=== PATIENT | male | born 1950 | race Caucasian/White ===

== ENCOUNTER 2017-02-12 18:23 | Emergency (ER) | payer MEDICAID ==
[~2017-02-12] VITALS: Ht 172.7 cm; Wt 75.0 kg
[~2017-02-12 18:23] MED LIST: FIORICET PO
[2017-02-12 18:47] VITALS: Ht 172.7 cm; Wt 75.0 kg
[2017-02-12] MEDS ORDERED: PETR5OIN3 TOP (19:14)
[2017-02-12] MEDS ORDERED: CETI10CA PO (19:14)
--- NOTE | 2017-02-12 19:24 | ERD ---
ER Documentation Chief Complaint Date/Time DATE: 02/12/17 TIME: 19:21 Chief Complaint nosebleed today, not at this time. Denies blood thinner HPI 66-year-old male presents in emergency department for complaints of a nosebleed episode today. Patient was outside, was very hot, started to have nose bleeding afterwards. Patient did not have any nasal trauma. Patient denies any nasal pain. Patient denies any difficulty breathing. Patient's bleeding from the nose stopped. Patient does not take any medications for blood thinning. Patient does not have any other symptoms. Patient denies any other bleeding symptoms. ROS All systems reviewed and are negative except as per history of present illness. Medications Home Meds Active Scripts Petrolatum,White* (Vaseline*) 5 Gm Oint.pack, 1 APPLIC TOP BID, #1 PACKET Prov:JAVID FREDERICK NP 02/12/17 Cetirizine Hcl* (Zyrtec*) 10 Mg Capsule, 10 MG PO DAILY, #30 TAB.CHEW Prov:JAVID FREDERICK NP 02/12/17 Acetamin/Butalbital/Caffeine* (Fioricet*) 1 Tab Tab, 1 TAB PO Q4H Y for PAIN LEVEL 1-5, #30 TAB Prov:ALEXIS ZAMAN PA-C 05/12/16 Allergies Allergies: Coded Allergies: No Known Allergy (Unverified , 05/12/16) PMhx/Soc History of Surgery: No Hx Neurological Disorder: No Hx Respiratory Disorders: No Hx Cardiac Disorders: Yes (htn) Hx Psychiatric Problems: No Hx Miscellaneous Medical Probl: No Hx Alcohol Use: No Hx Substance Use: No Hx Tobacco Use: No FmHx Family History: No coronary disease, No diabetes, No other Physical Exam Vitals Vital Signs Date Time Temp Pulse Resp B/P Pulse Ox O2 Delivery O2 Flow Rate FiO2 02/12/17 18:47 98.3 71 18 136/79 98 Physical Exam GENERAL: The patient is well developed and appropriate for usual state of health, in no apparent distress. HEENT: Atraumatic. Ears: Normal tympanic membrane, no erythema or bulging. No ear canal swelling. No ear discharge. Nose: normal nasal turbinates, no erythema or swelling. Normal nasal discharge. Noted dried blood in both naris. No active bleeding at this time. Throat: oropharynx clear. No tonsillar swelling or tonsillar exudates. No lymphadenopathy. CHEST: Clear to auscultation bilaterally. There are no rales, wheezes or rhonchi. HEART: Regular rate and rhythm. No murmurs, clicks, rubs or gallops. No S3 or S4. ABDOMEN: Soft, nontender and nondistended. Good bowel sounds. No rebound or guarding. No gross peritonitis. No gross organomegaly or masses. No Haddad sign or McBurney point tenderness. BACK: No midline or flank tenderness. EXTREMITIES: Equal pulses bilaterally. There is no peripheral clubbing, cyanosis or edema. No focal swelling or erythema. Full range of motion. Grossly neurovascularly intact. NEURO: Alert and oriented. Cranial nerves 2-12 intact. Motor strength in all 4 extremities with 5/5 strength. Sensation grossly intact. Normal speech and gait. SKIN: There is no apparent rash or petechia. The skin is warm and dry. HEMATOLOGIC AND LYMPHATIC: There is no evidence of excessive bruising or lymphedema. No gross cervical, axillary, or inguinal lymphadenopathy. Procedures/MDM Medical decision making: Patient's symptoms of malaise with nonspecific of this time, most likely from the hot weather causing vasodilation on the nasal capillaries. No trauma in the nasal area. no nasal obstruction. No active bleeding at this time. No other bleeding symptoms noted at this time. Patient was given for Zyrtec, Vaseline, is advised to apply Vaseline in both nares to prevent dryness of the nasal turbinates. Patient is advised to return to emergency department for nonstop nasal bleeding, other bleeding symptoms, or any other worsening symptoms. Otherwise, patient is advised to follow with primary care doctor in 2-3 days for reevaluation of symptoms Departure Diagnosis: Primary Impression: Epistaxis Condition: Stable Patient Instructions: Epistaxis (Adult) JAVID FREDERICK NP Feb 12, 2017 19:24
== END 2017-02-12 19:30 | disposition home or self-care (01) ==
LOC: E/R 18:23
DX: R04.0 Epistaxis (principal); I10 Essential (primary) hypertension
CPT/HCPCS: 99283

== ENCOUNTER 2017-03-25 12:48 | Emergency (ER) | payer MEDICAID ==
[~2017-03-25] VITALS: Ht 172.7 cm; Wt 74.5 kg
[~2017-03-25 12:48] MED LIST changes: +CETI10CA PO; +PETR5OIN3 TOP
[2017-03-25 12:51] VITALS: Ht 172.7 cm; Wt 74.5 kg
[2017-03-25] MEDS ORDERED: SODIUM CHLORIDE 0.9% 1L BAG IV* STA (13:36)
[2017-03-25] MEDS ORDERED: ACETAMINOPHEN 500 MG TAB PO STA (13:36)
[2017-03-25 14:24] LABS: ADD UMIC YES; UR ASCORBIC ACID NEGATIVE (NEGATIVE); UR BILIRUBIN (Dip) NEGATIVE (NEGATIVE); UR BLOOD (Dip) NEGATIVE (NEGATIVE); UR CLARITY CLEAR (CLEAR); UR COLOR YELLOW (YELLOW); UR GLUCOSE (Dip) NEGATIVE (NEGATIVE); UR KETONES (Dip) 1+ mg/dL (NEGATIVE); UR LEUKOCYTE ESTERASE (Dip) NEGATIVE Leu/ul (NEGATIVE); UR NITRITE (Dip) NEGATIVE (NEGATIVE); UR RBC 1 /HPF (0-5); UR TOTAL PROTEIN (Dip) 1+ mg/dl (NEGATIVE); UR UROBILINOGEN (Dip) 1+ mg/dL (NEGATIVE)
[2017-03-25 14:33] LABS: BASOPHILS % 0.2 % (0.0-2.0); HEMATOCRIT 39.5 % (42.0-52.0); HEMOGLOBIN 13.8 g/dl (14.0-18.0); LYMPHOCYTES % 7.6 % (15.0-51.0); MEAN CORPUSCULAR HEMOGLOBIN 31.9 pg (29.0-33.0); MEAN CORPUSCULAR HGB CONC 34.9 g/dl (32.0-37.0); MEAN CORPUSCULAR VOLUME 91.2 fl (82.0-101.0); MEAN PLATELET VOLUME 11.7 fl (7.4-10.4); MONOCYTE # 0.9 10^3/ul (0.3-0.9); MONOCYTES % 7.3 % (0.0-11.0); NEUTROPHIL # 10.6 10^3/ul (1.6-7.5); NEUTROPHILS % 84.5 % (39.0-77.0); PLATELET COUNT 137 10^3/UL (140-415); POSITIVE DIFF @See below; RED BLOOD COUNT 4.33 10^6/ul (4.70-6.10); RED CELL DISTRIBUTION WIDTH 13.2 % (11.5-14.5); WHITE BLOOD COUNT 12.5 10^3/ul (4.8-10.8)
--- NOTE | 2017-03-25 14:33 | RADRPT ---
PROCEDURE: CT Brain without contrast. CLINICAL INDICATION: Headache.. TECHNIQUE: A CT of the brain was performed on a multi-slice CT scanner utilizing axial sections fr om the skull base through the vertex without contrast. Coronal and sagittal reconstructed images wer e provided. One or more of the following does reduction techniques were used: Automated exposure c ontrol; adjustment of the mA and/or kV according to patient size; use of the aorta of reconstruction technique. Images were reviewed on a high-resolution PACS workstation. Exam DLP equals 720.23 mGy- cm. The CTDI equals 42.69 mGy COMPARISON: None available FINDINGS: Mild diffuse cerebral and cerebellar atrophy is present. There is no evidence of intracranial hemor rhage, mass effect or midline shift. No abnormal intra-axial or extra-axial fluid collections are s een. There are mild deep white matter patchy hypodensities which are nonspecific, but typically see n in small vessel chronic ischemic disease. The density of the brain is otherwise normal and the g ray/white matter differentiation is well preserved. The osseous structures and visualized paranasal sinuses are unremarkable. IMPRESSION: 1. No CT evidence of acute intracranial pathology. 2. Mild diffuse atrophy and deep white matter microangiopathic ischemic changes. RPTAT: KK .Anant Ricketts MD, Date Time Electronically viewed and signed by .Anant Ricketts MD, MD on 03/25/2017 14:33 .B/
[2017-03-25 14:49] LABS: INR 1.12; PROTIME 14.4 Sec (12.2-14.2); PT RATIO 1.1
[2017-03-25 14:53] LABS: ALBUMIN 4.5 g/dl (3.3-4.9); ALBUMIN/GLOBULIN RATIO 1.66; CALCIUM 9.4 mg/dl (8.4-10.2); CREATININE 1.84 mg/dl (0.61-1.24); POTASSIUM 4.3 mmol/L (3.5-5.1); TOTAL PROTEIN 7.2 g/dl (6.1-8.1)
--- NOTE | 2017-03-25 14:53 | RADRPT ---
PROCEDURE: XR Chest. CLINICAL INDICATION: Sepsis TECHNIQUE: Single frontal chest x-ray. COMPARISON: None. FINDINGS: The lungs are clear of acute infiltrates, edema, effusions, or masses. There is minimal bibasilar at electasis.. The cardiomediastinal silhouette is unremarkable. The osseous structures are intact. IMPRESSION: No acute cardiopulmonary disease. RPTAT: GG .Gavin Orozco MD, MD Date Time Electronically viewed and signed by .Gavin Oorzco MD, MD on 03/25/2017 14:52 .L/
[2017-03-25 15:03] LABS: TROPONIN-I 0.012 ng/ml (0.00-0.12)
[2017-03-25] MEDS ORDERED: TYL500 PO (16:19)
[2017-03-25] MEDS ORDERED: D-ME473S18 PO (16:20)
[2017-03-25] MEDS ORDERED: ONDA-43 PO (16:20)
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
[2017-03-25 16:47] VITALS: BP 129/87; PULSE 99; RESP 20; TEMP 99.2
[2017-03-26] MEDS ORDERED: BENA10TA48 PO (21:54)
[2017-03-26] MEDS ORDERED: HYDR-3011 PO (21:54)
[2017-03-26] MEDS ORDERED: TAMS0.4C2 PO (21:56)
== END 2017-03-25 16:50 | disposition home or self-care (01) ==
LOC: FTE 12:48
DX: R50.9 Fever, unspecified (principal); R11.2 Nausea with vomiting, unspecified; I10 Essential (primary) hypertension; R07.9 Chest pain, unspecified
CPT/HCPCS: 36415; 70450; 71010; 80053; 81001; 83605; 84484; 85025; 85610; 85730; 87040; 87086; 93005; J7030; Z7502; Z7610

== ENCOUNTER 2017-03-26 16:42 | Inpatient (IN) | payer MEDICAID ==
[~2017-03-26] VITALS: Ht 172.7 cm; Wt 75.0 kg
[~2017-03-26 16:42] MED LIST changes: +D-ME473S18 PO; +ONDA-43 PO; +TYL500 PO
[2017-03-26] MEDS ORDERED: ACETAMINOPHEN 325 MG TAB PO STA (19:38)
[2017-03-26] MEDS ORDERED: SODIUM CHLORIDE 0.9% 1L BAG IV* STA (19:38)
[2017-03-26] MEDS ORDERED: CEFEPIME 2GM/50 ML (PMX) 50 ML IVPB STA (19:38)
[2017-03-26] MEDS ORDERED: VANCOMYCIN 1 GM (PMX) 250 ML IVPB ONE (20:00)
[2017-03-26 20:25] LABS: BASOPHILS % 0.1 % (0.0-2.0); HEMATOCRIT 37.4 % (42.0-52.0); HEMOGLOBIN 13.4 g/dl (14.0-18.0); LYMPHOCYTES # 0.9 10^3/ul (0.8-2.9); LYMPHOCYTES % 5.6 % (15.0-51.0); MEAN CORPUSCULAR HEMOGLOBIN 31.8 pg (29.0-33.0); MEAN CORPUSCULAR HGB CONC 35.8 g/dl (32.0-37.0); MEAN CORPUSCULAR VOLUME 88.8 fl (82.0-101.0); MEAN PLATELET VOLUME 12.1 fl (7.4-10.4); MONOCYTE # 1.4 10^3/ul (0.3-0.9); MONOCYTES % 8.9 % (0.0-11.0); NEUTROPHIL # 13.5 10^3/ul (1.6-7.5); NEUTROPHILS % 84.8 % (39.0-77.0); PLATELET COUNT 124 10^3/UL (140-415); RED BLOOD COUNT 4.21 10^6/ul (4.70-6.10); RED CELL DISTRIBUTION WIDTH 13.1 % (11.5-14.5); WHITE BLOOD COUNT 15.9 10^3/ul (4.8-10.8)
[2017-03-26 20:30] LABS: ADD UMIC YES; UR ASCORBIC ACID NEGATIVE (NEGATIVE); UR BILIRUBIN (Dip) NEGATIVE (NEGATIVE); UR BLOOD (Dip) 2+ mg/dL (NEGATIVE); UR CLARITY CLEAR (CLEAR); UR COLOR YELLOW (YELLOW); UR GLUCOSE (Dip) NEGATIVE (NEGATIVE); UR KETONES (Dip) 1+ mg/dL (NEGATIVE); UR LEUKOCYTE ESTERASE (Dip) NEGATIVE Leu/ul (NEGATIVE); UR NITRITE (Dip) NEGATIVE (NEGATIVE); UR RBC 1 /HPF (0-5); UR SPECIFIC GRAVITY (Dip) 1.024 (1.003-1.030); UR TOTAL PROTEIN (Dip) 2+ mg/dl (NEGATIVE); UR UROBILINOGEN (Dip) 1+ mg/dL (NEGATIVE)
[2017-03-26 20:39] LABS: INR 1.12; PROTIME 14.4 Sec (12.2-14.2); PT RATIO 1.1
--- NOTE | 2017-03-26 20:39 | RADRPT ---
PROCEDURE: CT Head without. CLINICAL INDICATION: Altered mental status. TECHNIQUE: The study was performed utilizing a multi-slice, multidetector CT scanner. Direct spira l 1 mm axial sections were obtained through the head without the use of intravenous contrast materia l. 1 or more of the following dose reduction techniques were utilized: Automated exposure control, adjustment of the mA and/or kV according to patient's size, iterative reconstruction technique. Co [place] and sagittal reformations were obtained. The images were reviewed on a PACS workstation. RADIATION DOSE: CTDIvol: 43.8 mGyDLP: They are 10.3 mGy-cm COMPARISON: 03/25/2017 FINDINGS: There is no intracranial hemorrhage, extra-axial fluid collection, mass lesion, midline shift or hyd rocephalus. There is mild prominence of the cerebral sulci, lateral and third ventricles. The whit e matter is unremarkable. The gibson-white matter differentiation is preserved. The basal cisterns a re patent. The midline structures are intact. The orbits, calvarium and extracranial soft tissues are normal in appearance. The visualized paranasal sinuses, mastoid air cells and middle ear cavitie s are normally aerated. IMPRESSION: 1. No acute intracranial abnormality. No intracranial hemorrhage, extra-axial fluid collection, ma ss lesion or hydrocephalous. 2. Stable mild peripheral and central cerebral volume loss. RPTAT: HGAS .Gaurang Floyd MD, MD Date Time Electronically viewed and signed by .Gaurang Floyd MD, MD on 03/26/2017 20:39 .S/
[2017-03-26 20:40] LABS: PARTIAL THROMBOPLASTIN TIME 28.8 Sec (25.0-35.0)
--- NOTE | 2017-03-26 20:40 | RADRPT ---
PROCEDURE: XR Chest. CLINICAL INDICATION: Chest pain. TECHNIQUE: AP view of the chest was obtained. COMPARISON: 03/25/2017 FINDINGS: The cardiomediastinal silhouette is within normal limits. The lungs are clear. No signs of pleural f luid or pneumothorax are seen. The osseous structures and soft tissues are unremarkable. IMPRESSION: 1. No significant interval change compared to 03/25/2017. No evidence for active cardiopulmonary d isease. RPTAT: HGAS .Gaurang Floyd MD, MD Date Time Electronically viewed and signed by .Gaurang Floyd MD, MD on 03/26/2017 20:40 .S/
[2017-03-26 20:42] LABS: ALBUMIN 4.4 g/dl (3.3-4.9); ALBUMIN/GLOBULIN RATIO 1.62; BILIRUBIN,INDIRECT 1.2 mg/dl (0-1.1); BILIRUBIN,TOTAL 1.2 mg/dl (0.2-1.3); CALCIUM 8.8 mg/dl (8.4-10.2); CREATININE 1.74 mg/dl (0.61-1.24); POTASSIUM 3.7 mmol/L (3.5-5.1); TOTAL PROTEIN 7.1 g/dl (6.1-8.1)
[2017-03-26 20:53] LABS: TROPONIN-I 0.041 ng/ml (0.00-0.12)
[2017-03-26] MEDS ORDERED: ACETAMINOPHEN 325 MG TAB PO PRN (21:30)
[2017-03-26] MEDS ORDERED: ONDANSETRON 4 MG INJ IV PRN (21:30)
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
[2017-03-26 21:45] VITALS: PULSE 86; TEMP 99.7
[2017-03-26] MEDS ORDERED: BENA10TA48 PO (21:54)
[2017-03-26] MEDS ORDERED: HYDR-3011 PO (21:54)
[2017-03-26] MEDS ORDERED: TAMS0.4C2 PO (21:56)
[2017-03-26 22:58] VITALS: Ht 172.7 cm; Wt 75.0 kg
[2017-03-26 23:29] VITALS: BP 131/74; RESP 18
[2017-03-27] MEDS ORDERED: ONDANSETRON 4 MG INJ IV PRN
[2017-03-27] MEDS: DEXTROSE 5%-0.9% NACL 1,000 ML IV SCH ×3 (00:07→20:00)
[2017-03-27 02:00] VITALS: BP 132/76; RESP 18
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
[2017-03-27] MEDS ORDERED: VANCOMYCIN IV PER PHARMACY XX SCH (05:00)
[2017-03-27 06:02] LABS: BASOPHILS % 0.2 % (0.0-2.0); HEMATOCRIT 36.5 % (42.0-52.0); HEMOGLOBIN 12.9 g/dl (14.0-18.0); LYMPHOCYTES # 0.7 10^3/ul (0.8-2.9); LYMPHOCYTES % 6.2 % (15.0-51.0); MEAN CORPUSCULAR HEMOGLOBIN 31.8 pg (29.0-33.0); MEAN CORPUSCULAR HGB CONC 35.3 g/dl (32.0-37.0); MEAN CORPUSCULAR VOLUME 89.9 fl (82.0-101.0); MEAN PLATELET VOLUME 12.1 fl (7.4-10.4); MONOCYTE # 1.4 10^3/ul (0.3-0.9); MONOCYTES % 11.7 % (0.0-11.0); NEUTROPHIL # 9.5 10^3/ul (1.6-7.5); NEUTROPHILS % 81.4 % (39.0-77.0); PLATELET COUNT 113 10^3/UL (140-415); RED BLOOD COUNT 4.06 10^6/ul (4.70-6.10); RED CELL DISTRIBUTION WIDTH 13.1 % (11.5-14.5); WHITE BLOOD COUNT 11.7 10^3/ul (4.8-10.8)
[2017-03-27] MEDS: PIPER-TAZO 3.375 GM IV (PMX) 100 ML IVPB SCH ×3 (06:04→22:07)
[2017-03-27 06:52] LABS: ALBUMIN 3.6 g/dl (3.3-4.9); ALBUMIN/GLOBULIN RATIO 1.44; BILIRUBIN,INDIRECT 0.9 mg/dl (0-1.1); BILIRUBIN,TOTAL 0.9 mg/dl (0.2-1.3); CALCIUM 8.2 mg/dl (8.4-10.2); CREATININE 1.62 mg/dl (0.61-1.24); MAGNESIUM 1.5 mg/dl (1.7-2.5); PHOSPHORUS 3.1 mg/dl (2.5-4.9); POTASSIUM 4.1 mmol/L (3.5-5.1); TOTAL PROTEIN 6.1 g/dl (6.1-8.1)
[2017-03-27 07:42] VITALS: BP 146/70; RESP 18
[2017-03-27] MEDS ORDERED: CEFEPIME 1GM/50 ML (PMX) 50 ML IVPB SCH (09:00)
[2017-03-27] MEDS: ACETAMINOPHEN 325 MG TAB PO PRN ×2 (09:26→16:00)
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
[2017-03-27] MEDS ORDERED: MAGNESIUM SULFATE 2 GM/50 ML 50 ML IVPB ONE (12:00)
[2017-03-27 12:20] LABS: CHOL/HDL RATIO 3.3 RATIO
[2017-03-27 14:11] VITALS: BP 148/71; RESP 18
[2017-03-27] MEDS: VANCOMYCIN 1 GM in NS 250 ML IVPB SCH (16:00)
--- NOTE | 2017-03-27 16:27 | CONS ---
Date/Time of Note Date/Time of Note DATE: 03/27/17 TIME: 16:25 Consultation Date/Type/Reason Admit Date/Time Mar 26, 2017 at 21:15 Date of Consultation: Mar 27, 2017 Type of Consultation: ID Reason for Consultation Antibiotic management in patient with fever and leucocytosis,on Vanco and Zosyn.Recent exposure to insect spray. Past Medical History Medical History: hypertension, other (BPH, history of non-Hodgkin's lymphoma) Social History Alcohol Use: none Smoking Status: Never smoker Drug Use: none Exam/Review of Systems Vital Signs Vitals Vital Signs Date Time Temp Pulse Resp B/P Pulse Ox O2 Delivery O2 Flow Rate FiO2 03/27/17 14:11 102.8 84 18 148/71 98 03/26/17 21:45 Room Air 03/26/17 20:00 2 Intake and Output 03/26/17 03/26/17 03/27/17 15:00 23:00 07:00 Intake Total 2530 ml 1050 ml Output Total 1750 ml Balance 2530 ml -700 ml Results Result Diagram: 03/27/17 0523 03/27/17 0523 Results 24 hrs Laboratory Tests Test 03/26/17 20:10 03/26/17 22:00 03/26/17 23:55 03/27/17 05:23 White Blood Count 15.9 #H 11.7 #H Red Blood Count 4.21 L 4.06 L Hemoglobin 13.4 L 12.9 L Hematocrit 37.4 L 36.5 L Mean Corpuscular Volume 88.8 89.9 Mean Corpuscular Hemoglobin 31.8 31.8 Mean Corpuscular Hemoglobin Concent 35.8 35.3 Red Cell Distribution Width 13.1 13.1 Platelet Count 124 L 113 L Mean Platelet Volume 12.1 H 12.1 H Neutrophils % 84.8 H 81.4 H Lymphocytes % 5.6 L 6.2 L Monocytes % 8.9 11.7 H Eosinophils % 0.0 0.0 Basophils % 0.1 0.2 Nucleated Red Blood Cells % 0.0 0.0 Neutrophils # 13.5 H 9.5 H Lymphocytes # 0.9 0.7 L Monocytes # 1.4 H 1.4 H Eosinophils # 0.0 0.0 Basophils # 0.0 0.0 Nucleated Red Blood Cells # 0.0 0.0 Prothrombin Time 14.4 H Prothrombin Time Ratio 1.1 INR International Normalized Ratio 1.12 Activated Partial Thromboplast Time 28.8 Urine Color YELLOW Urine Clarity CLEAR Urine pH 5.0 Urine Specific [place] 1.024 Urine Ketones 1+ H Urine Nitrite NEGATIVE Urine Bilirubin NEGATIVE Urine Urobilinogen 1+ H Urine Leukocyte Esterase NEGATIVE Urine Microscopic RBC 1 Urine Microscopic WBC 1 Urine Hemoglobin 2+ H Urine Glucose NEGATIVE Urine Total Protein 2+ H Sodium Level 127 L 135 Potassium Level 3.7 4.1 Chloride Level 86 L 97 # Carbon Dioxide Level 25 25 Anion Gap 20 H 17 H Blood Urea Nitrogen 20 20 Creatinine 1.74 H 1.62 H Glucose Level 114 106 Lactic Acid Level 1.3 0.9 0.9 Calcium Level 8.8 8.2 L Total Bilirubin 1.2 0.9 Direct Bilirubin 0.00 0.00 Indirect Bilirubin 1.2 H 0.9 Aspartate Amino Transf (AST/SGOT) 54 H 50 H Alanine Aminotransferase (ALT/SGPT) 44 44 Alkaline Phosphatase 50 38 L Troponin I 0.041 Total Protein 7.1 6.1 # Albumin 4.4 3.6 Globulin 2.70 2.50 Albumin/Globulin Ratio 1.62 1.44 Hemoglobin A1c 5.6 Phosphorus Level 3.1 Magnesium Level 1.5 L Triglycerides Level 71 Cholesterol Level 95 L LDL Cholesterol, Calculated 53 HDL Cholesterol 28 L Cholesterol/HDL Ratio 3.3 Medications Medications Current Medications Dextrose/Sodium Chloride (D5-NS) 1,000 ml @ 100 mls/hr Q10H IV Last administered on 03/27/17 10:00; Admin Dose 100 MLS/HR; Start 03/27/17 at 00:00 Ondansetron HCl 4 mg 4 mg Q6H PRN IV NAUSEA AND/OR VOMITING; Start 03/27/17 at 00:00 Piperacillin Sod/ Tazobactam Sod 100 ml @ 200 mls/hr Q8 IVPB Last administered on 03/27/17 14:52; Admin Dose 200 MLS/HR; Start 03/27/17 at 06:00 Vancomycin HCl (Vancocin) 250 ml @ 125 mls/hr Q24H IVPB Last administered on 16:00; Admin Dose 125 MLS/HR; Start 03/27/17 at 15:00 Acetaminophen (Tylenol Tab) 650 mg Q6H PRN PO PAIN AND OR ELEVATED TEMP Last administered on 03/27/17t 16:00; Admin Dose 650 MG; Start 03/27/17 at 09:30 Famotidine (Pepcid) 10 mg DAILY PO ; Start 03/28/17 at 09:00 Heparin Sodium (Porcine) (Heparin (5000 Units/0.5 ml)) 5,000 unit BID SC ; Start 03/27/17 at 21:00 Ibuprofen (Motrin) 800 mg Q6H PRN PO PAIN AND OR ELEVATED TEMP; Start 03/27/17 at 15:30 GINO NOONAN MD Mar 27, 2017 16:27
[2017-03-27 19:51] VITALS: BP 138/78; RESP 20
[2017-03-27] MEDS: IBUPROFEN 400 MG TAB PO PRN (20:51)
[2017-03-27] MEDS: HEPARIN 5,000 UNIT/0.5 ML VIAL SC SCH (20:57)
[2017-03-28 01:35] VITALS: BP 115/68; RESP 20
[2017-03-28] MEDS: DEXTROSE 5%-0.9% NACL 1,000 ML IV SCH (03:33)
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
[2017-03-28] MEDS: PIPER-TAZO 3.375 GM IV (PMX) 100 ML IVPB SCH ×3 (06:36→21:34)
[2017-03-28 06:43] LABS: BASOPHILS % 0.1 % (0.0-2.0); HEMATOCRIT 37.1 % (42.0-52.0); HEMOGLOBIN 12.7 g/dl (14.0-18.0); LYMPHOCYTES # 0.9 10^3/ul (0.8-2.9); MEAN CORPUSCULAR HGB CONC 34.2 g/dl (32.0-37.0); MEAN CORPUSCULAR VOLUME 90.5 fl (82.0-101.0); MEAN PLATELET VOLUME 12.7 fl (7.4-10.4); MONOCYTE # 1.1 10^3/ul (0.3-0.9); MONOCYTES % 11.5 % (0.0-11.0); NEUTROPHIL # 7.6 10^3/ul (1.6-7.5); NEUTROPHILS % 79.1 % (39.0-77.0); PLATELET COUNT 101 10^3/UL (140-415); RED CELL DISTRIBUTION WIDTH 13.5 % (11.5-14.5); WHITE BLOOD COUNT 9.6 10^3/ul (4.8-10.8)
[2017-03-28 07:19] LABS: CREATININE 1.44 mg/dl (0.61-1.24); MAGNESIUM 2.2 mg/dl (1.7-2.5); PHOSPHORUS 3.1 mg/dl (2.5-4.9); POTASSIUM 4.3 mmol/L (3.5-5.1)
[2017-03-28 07:41] VITALS: BP 145/76; RESP 20
[2017-03-28] MEDS: FAMOTIDINE 20 MG TAB PO SCH (09:13)
[2017-03-28] MEDS: IBUPROFEN 400 MG TAB PO PRN (09:13)
[2017-03-28] MEDS: HEPARIN 5,000 UNIT/0.5 ML VIAL SC SCH ×2 (09:27→21:46)
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
[2017-03-28] MEDS: SOD CHLORIDE 0.9% 1,000 ML IV SCH (12:30)
[2017-03-28 13:33] VITALS: BP 138/74; RESP 20
[2017-03-28] MEDS: VANCOMYCIN 1 GM in NS 250 ML IVPB SCH (15:33)
--- NOTE | 2017-03-28 17:34 | CONS ---
Date/Time of Note Date/Time of Note DATE: 03/28/17 TIME: 17:11 Assessment/Plan Assessment/Plan Chief Complaint/Hosp Course ID PROGRESS NOTE CURRENT ABX: Zosyn #1 s/p Cefepime #2 24 HOUR INTERVAL SUMMARY * Feeling better, resting comfortably, fever down, WBC down -> had fever + VINSON early am ~0500 -> ABX changed to Zosyn * 03/26/17 CXR: No evidence for active cardiopulmonary disease. * 03/26/17 CT BRAIN: 1. No acute intracranial abnormality. No intracranial hemorrhage, extra-axial fluid collection, mass lesion or hydrocephalous. 2. Stable mild peripheral and central cerebral volume loss. * MICRO 03/26/17: BCx(-); Urine (+) Mixed pathogens, possible contaminant Specimen: [id number] Status: Complete Lisa: 03/26/17-2009 Rcvd: 09/11-2019 Source: CATHETER U Sp Descrip: Procedure Result Microbiology URINE CULTURE Final Organism 1 MIXED GRAM POSITIVE ORGANISMS COLONY COUNT 50,000 - 60,000 CFU/ml Exam Constitutional: alert, oriented, well developed Head: atraumatic, normocephalic Eyes: EOMI, PERRL Respiratory: clear to auscultation, normal air movement Cardiovascular: nl pulses, regular rate and rhythm Gastrointestinal: non-tender, soft Extremities: normal pulses Neurological: nl mental status, nl speech, nl strength ID ASSESSMENT 66 yo M PMHx of Non-Hodgkin's Lymphoma in remission (s/p Chemo Rx 2015 in [facility] ) admit with: 1. Sepsis w/fevers 102.4. ->103.0, leukocytosis, slightly elevated lactic acid 1.3 (WNL) due to (+)Gastroenteritis w/(+)nausea + vomiting * DDx viral syndrome? 2. Acute encephalopathy: likely toxic metabolic due to sepsis => Resolved * Head CT is negative. 3. BP: ?Urinary retention? * Continue Flomax 4. No confirmation of UTI/Prostatitis=> Suspect urostasis bacteruria * Patient at risk for bladder urostasis, UTI, and prostatitis due to (+)BPH * UA: WBC 1, no LeukEsterase, (-)bacteria/yeast * Urine Cx URINE CULTURE Final Organism 1 MIXED GRAM POSITIVE ORGANISMS COLONY COUNT 50,000 - 60,000 CFU/ml 4. Presumed acute kidney injury: Likely prerenal etiology as a result of vomiting and diarrhea 5. Hyponatremia: Secondary to GI loss from vomiting and diarrhea 6. QUERY: Silent ASP Pneumonitis in setting of acute encephalopathy without full blown PNA? CURRENT ABX: Zosyn #1 TOTAL ABX DAY #2 s/p Cefepime -> 03/26 ID RECOMMENDATIONS 1. Stool cx not sent prior to ABX, C.Diff pending 2. Pt has improved -- continue ABX, await final BCx result 3. We can repeat UA C&S see if he was in process of developing early UTI that was not sensitive to Cefepime? . Problems: Consultation Date/Type/Reason Admit Date/Time Mar 26, 2017 at 21:15 Initial Consult Date 03/27/17 Type of Consultation: ID Exam/Review of Systems Vital Signs Vitals Vital Signs Date Time Temp Pulse Resp B/P Pulse Ox O2 Delivery O2 Flow Rate FiO2 03/28/17 13:33 98.9 68 20 138/74 98 03/26/17 21:45 Room Air 03/26/17 20:00 2 Intake and Output 03/27/17 03/27/17 03/28/17 15:00 23:00 07:00 Intake Total 400 ml 1990 ml 1240 ml Output Total 1150 ml 1050 ml Balance 400 ml 840 ml 190 ml Results Result Diagram: 03/28/17 0540 03/28/17 0540 Results 24 hrs Laboratory Tests Test 03/28/17 05:40 White Blood Count 9.6 Red Blood Count 4.10 L Hemoglobin 12.7 L Hematocrit 37.1 L Mean Corpuscular Volume 90.5 Mean Corpuscular Hemoglobin 31.0 Mean Corpuscular Hemoglobin Concent 34.2 Red Cell Distribution Width 13.5 Platelet Count 101 L Mean Platelet Volume 12.7 H Neutrophils % 79.1 H Lymphocytes % 9.0 L Monocytes % 11.5 H Eosinophils % 0.0 Basophils % 0.1 Nucleated Red Blood Cells % 0.0 Neutrophils # 7.6 H Lymphocytes # 0.9 Monocytes # 1.1 H Eosinophils # 0.0 Basophils # 0.0 Nucleated Red Blood Cells # 0.0 Sodium Level 134 L Potassium Level 4.3 Chloride Level 96 L Carbon Dioxide Level 25 Anion Gap 17 H Blood Urea Nitrogen 14 Creatinine 1.44 H Glucose Level 101 Calcium Level 8.0 L Phosphorus Level 3.1 Magnesium Level 2.2 Medications Medications Current Medications Ondansetron HCl 4 mg 4 mg Q6H PRN IV NAUSEA AND/OR VOMITING; Start 03/27/17 at 00:00 Piperacillin Sod/ Tazobactam Sod 100 ml @ 200 mls/hr Q8 IVPB Last administered on 03/28/17 14:43; Admin Dose 200 MLS/HR; Start 03/27/17 at 06:00 Vancomycin HCl (Vancocin) 250 ml @ 125 mls/hr Q24H IVPB Last administered on 15:33; Admin Dose 125 MLS/HR; Start 03/27/17 at 15:00 Acetaminophen (Tylenol Tab) 650 mg Q6H PRN PO PAIN AND OR ELEVATED TEMP Last administered on 03/27/17 16:00; Admin Dose 650 MG; Start 03/27/17 at 09:30 Famotidine (Pepcid) 10 mg DAILY PO Last administered on 03/28/17 09:13; Admin Dose 10 MG; Start 03/28/17 at 09:00 Heparin Sodium (Porcine) (Heparin (5000 Units/0.5 ml)) 5,000 unit BID SC Last administered on 03/28/17 09:27; Admin Dose 5,000 UNIT; Start 03/27/17 at 21:00 Ibuprofen 800 mg 800 mg Q6H PRN PO PAIN AND OR ELEVATED TEMP Last administered on 03/28/17 09:13; Admin Dose 800 MG; Start 03/27/17 at 15:30 Sodium Chloride (NS) 1,000 ml @ 75 mls/hr [id number] IV Last administered on 12:30; Admin Dose 75 MLS/HR; Start 03/28/17 at 11:30 Miscellaneous Information (*Rx Drug Level Order Reminder*) VANCOMYCIN TROUGH 03/29 AT 1400 ONCE ONCE XX ; Start 03/29/17 at 14:00; Stop 03/29/17 at 14:01 DANIEL BECKETT NP Mar 28, 2017 17:22
[2017-03-28 18:38] LABS: ADD UMIC YES; UR ASCORBIC ACID NEGATIVE (NEGATIVE); UR BILIRUBIN (Dip) NEGATIVE (NEGATIVE); UR BLOOD (Dip) NEGATIVE (NEGATIVE); UR CLARITY CLEAR (CLEAR); UR COLOR YELLOW (YELLOW); UR GLUCOSE (Dip) NEGATIVE (NEGATIVE); UR KETONES (Dip) NEGATIVE (NEGATIVE); UR LEUKOCYTE ESTERASE (Dip) NEGATIVE Leu/ul (NEGATIVE); UR NITRITE (Dip) NEGATIVE (NEGATIVE); UR RBC 1 /HPF (0-5); UR SPECIFIC GRAVITY (Dip) 1.018 (1.003-1.030); UR TOTAL PROTEIN (Dip) 1+ mg/dl (NEGATIVE); UR UROBILINOGEN (Dip) 2+ mg/dL (NEGATIVE)
[2017-03-28 19:48] VITALS: BP 162/79; RESP 20
[2017-03-28] MEDS: DOCUSATE SODIUM 100 MG CAP PO SCH (21:34)
[2017-03-28] MEDS: SENNA TAB PO SCH (21:34)
[2017-03-28] MEDS: ACETAMINOPHEN 325 MG TAB PO PRN (21:34)
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
[2017-03-28] MEDS ORDERED: BARIUM SULF 2% 450 ML BTL (BERRY SMOOTHIE) PO ONE (23:30)
[2017-03-29] MEDS: SOD CHLORIDE 0.9% 1,000 ML IV SCH ×3 (00:50→14:10)
[2017-03-29 02:13] VITALS: BP 136/82; RESP 20
[2017-03-29] MEDS: ACETAMINOPHEN 325 MG TAB PO PRN ×2 (05:02→15:43)
[2017-03-29 06:23] LABS: BASOPHILS % 0.2 % (0.0-2.0); HEMATOCRIT 34.4 % (42.0-52.0); LYMPHOCYTES # 0.7 10^3/ul (0.8-2.9); LYMPHOCYTES % 8.8 % (15.0-51.0); MEAN CORPUSCULAR HEMOGLOBIN 31.3 pg (29.0-33.0); MEAN CORPUSCULAR HGB CONC 34.9 g/dl (32.0-37.0); MEAN CORPUSCULAR VOLUME 89.8 fl (82.0-101.0); MEAN PLATELET VOLUME 12.3 fl (7.4-10.4); MONOCYTES % 12.5 % (0.0-11.0); NEUTROPHIL # 6.4 10^3/ul (1.6-7.5); NEUTROPHILS % 78.1 % (39.0-77.0); PLATELET COUNT 114 10^3/UL (140-415); RED BLOOD COUNT 3.83 10^6/ul (4.70-6.10); RED CELL DISTRIBUTION WIDTH 13.3 % (11.5-14.5); WHITE BLOOD COUNT 8.2 10^3/ul (4.8-10.8)
[2017-03-29 06:53] LABS: CALCIUM 8.3 mg/dl (8.4-10.2); CREATININE 1.29 mg/dl (0.61-1.24); POTASSIUM 3.9 mmol/L (3.5-5.1)
[2017-03-29] MEDS: PIPER-TAZO 3.375 GM IV (PMX) 100 ML IVPB SCH ×3 (06:53→22:25)
[2017-03-29 08:14] VITALS: BP 127/67; RESP 18
[2017-03-29] MEDS: SENNA TAB PO SCH ×2 (08:42→20:58)
[2017-03-29] MEDS: DOCUSATE SODIUM 100 MG CAP PO SCH ×2 (08:42→20:58)
[2017-03-29] MEDS: FAMOTIDINE 20 MG TAB PO SCH (08:43)
[2017-03-29] MEDS: HEPARIN 5,000 UNIT/0.5 ML VIAL SC SCH ×2 (09:00→21:00)
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
[2017-03-29] MEDS ORDERED: SOD CHLORIDE 0.9% 100 ML ONE (10:38)
[2017-03-29] MEDS ORDERED: IODIXANOL LOCM 100 ML BTL ONE (10:38)
--- NOTE | 2017-03-29 13:04 | CONS ---
Date/Time of Note Date/Time of Note DATE: 03/29/17 TIME: 12:55 Assessment/Plan Assessment/Plan Chief Complaint/Hosp Course Assessment/Plan Chief Complaint/Hosp Course ID PROGRESS NOTE CURRENT ABX: Zosyn #1 s/p Cefepime #2 24 HOUR INTERVAL SUMMARY 1. Alert. Awake. No Acute Distress. * 03/26/17 CXR: No evidence for active cardiopulmonary disease. * 03/26/17 CT BRAIN: 1. No acute intracranial abnormality. No intracranial hemorrhage, extra-axial fluid collection, mass lesion or hydrocephalous. 2. Stable mild peripheral and central cerebral volume loss. * MICRO 03/26/17: BCx(-); Urine (+) Mixed pathogens, possible contaminant Specimen: [id number] Status: Complete Lisa: 03/26/17-2009 Rcvd: 09/11-2019 Source: CATHETER U Sp Descrip: Procedure Result Microbiology URINE CULTURE Final Organism 1 MIXED GRAM POSITIVE ORGANISMS COLONY COUNT 50,000 - 60,000 CFU/ml Exam Constitutional: alert, oriented, well developed Head: atraumatic, normocephalic Eyes: EOMI, PERRL Respiratory: clear to auscultation, normal air movement Cardiovascular: nl pulses, regular rate and rhythm Gastrointestinal: non-tender, soft Extremities: normal pulses Neurological: nl mental status, nl speech, nl strength ID ASSESSMENT 66 yo M PMHx of Non-Hodgkin's Lymphoma in remission (s/p Chemo Rx 2015 in [facility] ) admit with: 1. Sepsis w/fevers 102.4. ->103.0, leukocytosis, slightly elevated lactic acid 1.3 (WNL) due to (+)Gastroenteritis w/(+)nausea + vomiting * DDx viral syndrome? 2. Acute encephalopathy: likely toxic metabolic due to sepsis => Resolved * Head CT is negative. 3. BP: ?Urinary retention? * Continue Flomax 4. No confirmation of UTI/Prostatitis=> Suspect urostasis bacteruria * Patient at risk for bladder urostasis, UTI, and prostatitis due to (+)BPH * UA: WBC 1, no LeukEsterase, (-)bacteria/yeast * Urine Cx URINE CULTURE Final Organism 1 MIXED GRAM POSITIVE ORGANISMS COLONY COUNT 50,000 - 60,000 CFU/ml 4. Presumed acute kidney injury: Likely prerenal etiology as a result of vomiting and diarrhea 5. Hyponatremia: Secondary to GI loss from vomiting and diarrhea 6. QUERY: Silent ASP Pneumonitis in setting of acute encephalopathy without full blown PNA? 7. Gait Instability CURRENT ABX: Zosyn #1 TOTAL ABX DAY #2 s/p Cefepime -> 03/26 ID RECOMMENDATIONS 1. Continue Antibiotics. 2. Monitor Labs. 3. Fall Precautions. GI Prophylaxis. DVT Prophylaxis. Problems: Consultation Date/Type/Reason Admit Date/Time Mar 26, 2017 at 21:15 Initial Consult Date 03/28/17 Type of Consultation: id Referring Provider: LIUDMILA DEJESUS Exam/Review of Systems Vital Signs Vitals Vital Signs Date Time Temp Pulse Resp B/P Pulse Ox O2 Delivery O2 Flow Rate FiO2 03/29/17 08:14 99.4 67 18 127/67 99 03/26/17 21:45 Room Air 03/26/17 20:00 2 Intake and Output 03/28/17 03/28/17 03/29/17 15:00 23:00 07:00 Intake Total 450 ml 1715 ml 1135 ml Output Total 1000 ml 1350 ml Balance 450 ml 715 ml -215 ml Results Result Diagram: 03/29/17 0544 03/29/17 0544 Results 24 hrs Laboratory Tests Test 03/28/17 18:00 03/29/17 05:44 Urine Color YELLOW Urine Clarity CLEAR Urine pH 6.0 Urine Specific [place] 1.018 Urine Ketones NEGATIVE Urine Nitrite NEGATIVE Urine Bilirubin NEGATIVE Urine Urobilinogen 2+ H Urine Leukocyte Esterase NEGATIVE Urine Microscopic RBC 1 Urine Microscopic WBC 0 Urine Hemoglobin NEGATIVE Urine Glucose NEGATIVE Urine Total Protein 1+ H White Blood Count 8.2 Red Blood Count 3.83 L Hemoglobin 12.0 L Hematocrit 34.4 L Mean Corpuscular Volume 89.8 Mean Corpuscular Hemoglobin 31.3 Mean Corpuscular Hemoglobin Concent 34.9 Red Cell Distribution Width 13.3 Platelet Count 114 L Mean Platelet Volume 12.3 H Neutrophils % 78.1 H Lymphocytes % 8.8 L Monocytes % 12.5 H Eosinophils % 0.0 Basophils % 0.2 Nucleated Red Blood Cells % 0.0 Neutrophils # 6.4 Lymphocytes # 0.7 L Monocytes # 1.0 H Eosinophils # 0.0 Basophils # 0.0 Nucleated Red Blood Cells # 0.0 Sodium Level 129 L Potassium Level 3.9 Chloride Level 94 L Carbon Dioxide Level 24 Anion Gap 15 Blood Urea Nitrogen 13 Creatinine 1.29 H Glucose Level 103 Calcium Level 8.3 L Medications Medications Current Medications Ondansetron HCl 4 mg 4 mg Q6H PRN IV NAUSEA AND/OR VOMITING; Start 03/27/17 at 00:00 Piperacillin Sod/ Tazobactam Sod 100 ml @ 200 mls/hr Q8 IVPB Last administered on 03/29/17 06:53; Admin Dose 200 MLS/HR; Start 03/27/17 at 06:00 Vancomycin HCl (Vancocin) 250 ml @ 125 mls/hr Q24H IVPB Last administered on 15:33; Admin Dose 125 MLS/HR; Start 03/27/17 at 15:00 Acetaminophen (Tylenol Tab) 650 mg Q6H PRN PO PAIN AND OR ELEVATED TEMP Last administered on 03/29/17 05:02; Admin Dose 650 MG; Start 03/27/17 at 09:30 Famotidine (Pepcid) 10 mg DAILY PO Last administered on 03/29/17 08:43; Admin Dose 10 MG; Start 03/28/17 at 09:00 Heparin Sodium (Porcine) (Heparin (5000 Units/0.5 ml)) 5,000 unit BID SC Last administered on 03/29/17 09:00; Admin Dose 5,000 UNIT; Start 03/27/17 at 21:00 Ibuprofen 800 mg 800 mg Q6H PRN PO PAIN AND OR ELEVATED TEMP Last administered on 03/28/17 09:13; Admin Dose 800 MG; Start 03/27/17 at 15:30 Sodium Chloride (NS) 1,000 ml @ 75 mls/hr [id number] IV Last administered on 04:59; Admin Dose 75 MLS/HR; Start 03/28/17 at 11:30 Miscellaneous Information (*Rx Drug Level Order Reminder*) VANCOMYCIN TROUGH 03/29 AT 1400 ONCE ONCE XX ; Start 03/29/17 at 14:00; Stop 03/29/17 at 14:01 Docusate Sodium (Colace) 100 mg BID PO Last administered on 03/29/17 08:42; Admin Dose 100 MG; Start 03/28/17 at 21:00 Senna (Senokot) 1 tab BID PO Last administered on 03/29/17 08:42; Admin Dose 1 TAB; Start 03/28/17 at 21:00 JAMEEL HESTER NP Mar 29, 2017 13:04
--- NOTE | 2017-03-29 14:44 | RADRPT ---
PROCEDURE: CT Chest, Abdomen and Pelvis with contrast. CLINICAL INDICATION: Non-Hodgkins lymphoma, restaging. TECHNIQUE: Multiple contiguous axial CT images of the chest, abdomen and pelvis were obtained foll owing the intravenous administration of 100 cc of Visipaque 320. Coronal and sagittal reformatted i mages were subsequently created from the axial source images. Images were reviewed on a high-resolu [employer] PACS workstation. CTDIvol (mGy): 9.97; Total Exam DLP (mGy-cm): 823.82. One or more of the following dose reduction techniques were utilized: - Automated exposure control. - Adjustment of the mA and/or kV according to patient size. - Use of iterative reconstruction technique. COMPARISON: None. FINDINGS: CT chest: Limited imaging of the lower neck is unremarkable. The heart is not enlarged. There is no pericardial effusion. There is no mediastinal, hilar or axi llary lymphadenopathy. Mild dilatation of the ascending aorta is observed measuring 4.0 cm in great est diameter. The pulmonary arteries are not enlarged. The pulmonary arteries are not enlarged. There is no pulmonary consolidation, pleural effusion or pulmonary nodule. The tracheobronchial chago e is clear. CT abdomen/pelvis: The liver and spleen are homogeneous in enhancement. There is no evidence of enhancing/hypoenhancin g lesion. The hepatic and portal veins are patent. Cholelithiasis is present. The pancreas and ad renal glands are unremarkable. A markedly atrophic left kidney is observed. Left renal parenchymal enhancement is present. The ri ght kidney is unremarkable. There is no hydronephrosis. The abdominal aorta is normal in caliber. Atherosclerotic calcification is present. There is no bu lky periaortic / retroperitoneal lymphadenopathy. Shoddy lymph nodes are seen within the retroperito neum along with mild fat stranding. The stomach and small and large intestines are unremarkable. The appendix is normal. There are no f ocal inflammatory changes of the mesentery. There is no mesenteric lymphadenopathy. There is no as cites. The bladder is partially distended. The prostate gland is enlarged measuring approximately 7.3 x 5. 9 x 6.0 cm yielding a volume of 135 cc. There is no free pelvic fluid. There is no pelvic sidewall or inguinal lymphadenopathy. Scattered few tiny pelvic sidewall lymph nodes are present. There is a tiny fat containing right inguinal hernia. Moderate large hydroceles are seen within the right and left sides of the scrotum. Mild degenerative changes of the thoracolumbar spine are present. Body wall soft tissues are unrema rkable. IMPRESSION: No evidence of mass, lymphadenopathy or acute inflammatory pathology of the chest, abdomen or pelvis . Shoddy lymph nodes are seen within the retroperitoneum and pelvis. Mild dilatation of the ascending aorta. Cholelithiasis. Marked left renal atrophy. Enlarged prostate. Moderate large bilateral hydroceles. RPTAT: HLST .Jada Clement MD, MD Date Time Electronically viewed and signed by .Jada Clement MD, MD on 03/29/2017 14:43 .T/
--- NOTE | 2017-03-29 15:41 | CONS ---
Date/Time of Note Date/Time of Note DATE: 03/29/17 TIME: 15:40 Assessment/Plan Assessment/Plan Chief Complaint/Hosp Course History of non-Hodgkin's lymphoma: BARI Status post chemotherapy 2 years ago in his home country [facility]. Currently in remission. CTs - NEG Sepsis: as evidenced by fever and leukocytosis. No clear identifiable source of infection but likely secondary to gastroenteritis versus URI. Chest x-ray and urinalysis are negative. Presenting symptom could also possibly be related to the sanchez spray from 5 days ago given the timing of symptom onset. Patient still with fevers. -Follow-up full infectious workup, including urine culture, blood culture ( preliminary negative), stool culture as well as C. difficile -Continue broad-spectrum antibiotics, follow-up infectious disease recommendations Acute encephalopathy: Resolved Head CT is negative. - Will monitor for now. Not suspecting stroke Presumed acute kidney injury: Likely prerenal etiology as a result of vomiting and diarrhea. Creatinine slowly improving IV fluid. Will follow up with a.m. lab. Consider nephrology consult if worsens. Renal ultrasound is needed. Hyponatremia: Secondary to GI loss from vomiting and diarrhea -sodium levels back to normal Continue normal saline IV fluid Problems: Consultation Date/Type/Reason Admit Date/Time Mar 26, 2017 at 21:15 Initial Consult Date 03/28/17 Type of Consultation: [facility] Referring Provider: LIUDMILA DEJESUS 24 HR Interval Summary Free Text/Dictation all noted Exam/Review of Systems Vital Signs Vitals Vital Signs Date Time Temp Pulse Resp B/P Pulse Ox O2 Delivery O2 Flow Rate FiO2 03/29/17 08:14 99.4 67 18 127/67 99 03/26/17 21:45 Room Air 03/26/17 20:00 2 Intake and Output 03/28/17 03/28/17 03/29/17 15:00 23:00 07:00 Intake Total 450 ml 1715 ml 1135 ml Output Total 1000 ml 1350 ml Balance 450 ml 715 ml -215 ml Exam Constitutional: Lying in bed, no acute distress, family at bedside Head: atraumatic, normocephalic Eyes: EOMI, PERRL Respiratory: clear to auscultation, normal air movement Cardiovascular: nl pulses, regular rate and rhythm Gastrointestinal: non-tender, soft Extremities: normal pulses Neurological: nl mental status, nl speech, nl strength Results Result Diagram: 03/29/17 0544 03/29/17 0544 Results 24 hrs Laboratory Tests Test 03/28/17 18:00 03/29/17 05:44 Urine Color YELLOW Urine Clarity CLEAR Urine pH 6.0 Urine Specific [place] 1.018 Urine Ketones NEGATIVE Urine Nitrite NEGATIVE Urine Bilirubin NEGATIVE Urine Urobilinogen 2+ H Urine Leukocyte Esterase NEGATIVE Urine Microscopic RBC 1 Urine Microscopic WBC 0 Urine Hemoglobin NEGATIVE Urine Glucose NEGATIVE Urine Total Protein 1+ H White Blood Count 8.2 Red Blood Count 3.83 L Hemoglobin 12.0 L Hematocrit 34.4 L Mean Corpuscular Volume 89.8 Mean Corpuscular Hemoglobin 31.3 Mean Corpuscular Hemoglobin Concent 34.9 Red Cell Distribution Width 13.3 Platelet Count 114 L Mean Platelet Volume 12.3 H Neutrophils % 78.1 H Lymphocytes % 8.8 L Monocytes % 12.5 H Eosinophils % 0.0 Basophils % 0.2 Nucleated Red Blood Cells % 0.0 Neutrophils # 6.4 Lymphocytes # 0.7 L Monocytes # 1.0 H Eosinophils # 0.0 Basophils # 0.0 Nucleated Red Blood Cells # 0.0 Sodium Level 129 L Potassium Level 3.9 Chloride Level 94 L Carbon Dioxide Level 24 Anion Gap 15 Blood Urea Nitrogen 13 Creatinine 1.29 H Glucose Level 103 Calcium Level 8.3 L Medications Medications Current Medications Ondansetron HCl 4 mg 4 mg Q6H PRN IV NAUSEA AND/OR VOMITING; Start 03/27/17 at 00:00 Piperacillin Sod/ Tazobactam Sod 100 ml @ 200 mls/hr Q8 IVPB Last administered on 03/29/17 14:31; Admin Dose 200 MLS/HR; Start 03/27/17 at 06:00 Vancomycin HCl (Vancocin) 250 ml @ 125 mls/hr Q24H IVPB Last administered on 15:33; Admin Dose 125 MLS/HR; Start 03/27/17 at 15:00 Acetaminophen (Tylenol Tab) 650 mg Q6H PRN PO PAIN AND OR ELEVATED TEMP Last administered on 03/29/17 05:02; Admin Dose 650 MG; Start 03/27/17 at 09:30 Famotidine (Pepcid) 10 mg DAILY PO Last administered on 03/29/17 08:43; Admin Dose 10 MG; Start 03/28/17 at 09:00 Heparin Sodium (Porcine) (Heparin (5000 Units/0.5 ml)) 5,000 unit BID SC Last administered on 03/29/17 09:00; Admin Dose 5,000 UNIT; Start 03/27/17 at 21:00 Ibuprofen 800 mg 800 mg Q6H PRN PO PAIN AND OR ELEVATED TEMP Last administered on 03/28/17 09:13; Admin Dose 800 MG; Start 03/27/17 at 15:30 Sodium Chloride (NS) 1,000 ml @ 75 mls/hr [id number] IV Last administered on 04:59; Admin Dose 75 MLS/HR; Start 03/28/17 at 11:30 Docusate Sodium (Colace) 100 mg BID PO Last administered on 03/29/17 08:42; Admin Dose 100 MG; Start 03/28/17 at 21:00 Senna (Senokot) 1 tab BID PO Last administered on 03/29/17 08:42; Admin Dose 1 TAB; Start 03/28/17 at 21:00 Procedures Procedures [place] [address] Radiology Main Line: [phone] DIAGNOSTIC IMAGING REPORT Patient: ROSIE SHERWOOD : 1950 Age: 66 Sex: M MR #: [id number] DOS: 03/29/17 0700 Ordering MD: PATTY BARROW MD Location: [facility] [place] Room/Bed: Count includes the [facility]- PROCEDURE: CT Chest, Abdomen and Pelvis with contrast. CLINICAL INDICATION: Non-Hodgkins lymphoma, restaging. TECHNIQUE: Multiple contiguous axial CT images of the chest, abdomen and pelvis were obtained following the intravenous administration of 100 cc of Visipaque 320. Coronal and sagittal reformatted images were subsequently created from the axial source images. Images were reviewed on a high- resolution PACS workstation. CTDIvol (mGy): 9.97; Total Exam DLP (mGy-cm): 823.82. One or more of the following dose reduction techniques were utilized: - Automated exposure control. - Adjustment of the mA and/or kV according to patient size. - Use of iterative reconstruction technique. COMPARISON: None. FINDINGS: CT chest: Limited imaging of the lower neck is unremarkable. The heart is not enlarged. There is no pericardial effusion. There is no mediastinal, hilar or axillary lymphadenopathy. Mild dilatation of the ascending aorta is observed measuring 4.0 cm in greatest diameter. The pulmonary arteries are not enlarged. The pulmonary arteries are not enlarged. There is no pulmonary consolidation, pleural effusion or pulmonary nodule. The tracheobronchial tree is clear. CT abdomen/pelvis: The liver and spleen are homogeneous in enhancement. There is no evidence of enhancing/hypoenhancing lesion. The hepatic and portal veins are patent. Cholelithiasis is present. The pancreas and adrenal glands are unremarkable. A markedly atrophic left kidney is observed. Left renal parenchymal enhancement is present. The right kidney is unremarkable. There is no hydronephrosis. The abdominal aorta is normal in caliber. Atherosclerotic calcification is present. There is no bulky periaortic / retroperitoneal lymphadenopathy. Shoddy lymph nodes are seen within the retroperitoneum along with mild fat stranding. The stomach and small and large intestines are unremarkable. The appendix is normal. There are no focal inflammatory changes of the mesentery. There is no mesenteric lymphadenopathy. There is no ascites. The bladder is partially distended. The prostate gland is enlarged measuring approximately 7.3 x 5.9 x 6.0 cm yielding a volume of 135 cc. There is no free pelvic fluid. There is no pelvic sidewall or inguinal lymphadenopathy. Scattered few tiny pelvic sidewall lymph nodes are present. There is a tiny fat containing right inguinal hernia. Moderate large hydroceles are seen within the right and left sides of the scrotum. Mild degenerative changes of the thoracolumbar spine are present. Body wall soft tissues are unremarkable. IMPRESSION: No evidence of mass, lymphadenopathy or acute inflammatory pathology of the chest, abdomen or pelvis. Shoddy lymph nodes are seen within the retroperitoneum and pelvis. Mild dilatation of the ascending aorta. Cholelithiasis. Marked left renal atrophy. Enlarged prostate. Moderate large bilateral hydroceles. RPTAT: HLST .Jada Clement MD, Date Time Electronically viewed and signed by .Jada Clement MD, on 03/29/2017 14:43 .T/ CC: PATTY BARROW MD, VERA M MD Mar 29, 2017 15:41
[2017-03-29 16:00] VITALS: BP 155/76; RESP 18
[2017-03-29] MEDS: VANCOMYCIN 1 GM in NS 250 ML IVPB SCH (16:03)
[2017-03-29 19:37] VITALS: BP 133/72; RESP 20
[2017-03-30] MEDS: SOD CHLORIDE 0.9% 1,000 ML IV SCH ×2 (01:28→16:50)
[2017-03-30 01:53] VITALS: BP 163/79; RESP 20
[2017-03-30] MEDS: ACETAMINOPHEN 325 MG TAB PO PRN (02:01)
[2017-03-30 02:59] VITALS: BP 141/82
[2017-03-30] MEDS: VANCOMYCIN 1 GM in NS 250 ML IVPB SCH ×2 (03:49→16:21)
[2017-03-30 05:41] LABS: ABNORMAL IP MESSAGE 1; BASOPHILS % 0.4 % (0.0-2.0); EOSINOPHILS % 0.1 % (0.0-7.0); HEMATOCRIT 34.1 % (42.0-52.0); HEMOGLOBIN 12.2 g/dl (14.0-18.0); LYMPHOCYTES # 0.6 10^3/ul (0.8-2.9); LYMPHOCYTES % 7.1 % (15.0-51.0); MEAN CORPUSCULAR HEMOGLOBIN 31.6 pg (29.0-33.0); MEAN CORPUSCULAR HGB CONC 35.8 g/dl (32.0-37.0); MEAN CORPUSCULAR VOLUME 88.3 fl (82.0-101.0); MEAN PLATELET VOLUME 12.2 fl (7.4-10.4); MONOCYTE # 0.9 10^3/ul (0.3-0.9); MONOCYTES % 11.1 % (0.0-11.0); NEUTROPHIL # 6.7 10^3/ul (1.6-7.5); NEUTROPHILS % 80.7 % (39.0-77.0); PLATELET COUNT 121 10^3/UL (140-415); POSITIVE DIFF @See below; RED BLOOD COUNT 3.86 10^6/ul (4.70-6.10); RED CELL DISTRIBUTION WIDTH 13.2 % (11.5-14.5); WHITE BLOOD COUNT 8.3 10^3/ul (4.8-10.8)
[2017-03-30] MEDS: PIPER-TAZO 3.375 GM IV (PMX) 100 ML IVPB SCH ×2 (05:45→14:29)
[2017-03-30 05:57] LABS: MAGNESIUM 1.7 mg/dl (1.7-2.5); PHOSPHORUS 3.4 mg/dl (2.5-4.9)
[2017-03-30 06:02] LABS: CALCIUM 8.6 mg/dl (8.4-10.2); CREATININE 1.35 mg/dl (0.61-1.24); POTASSIUM 3.9 mmol/L (3.5-5.1)
[2017-03-30 07:34] VITALS: BP 160/86; RESP 20
[2017-03-30] MEDS: DOCUSATE SODIUM 100 MG CAP PO SCH ×2 (08:59→21:00)
[2017-03-30] MEDS: FAMOTIDINE 20 MG TAB PO SCH (09:00)
[2017-03-30] MEDS: SENNA TAB PO SCH ×2 (09:00→21:00)
[2017-03-30] MEDS: HEPARIN 5,000 UNIT/0.5 ML VIAL SC SCH ×2 (09:05→21:32)
[2017-03-30] MEDS: IBUPROFEN 400 MG TAB PO PRN (09:07)
--- NOTE | 2017-03-30 11:42 | PN ---
Date/Time of Note Date/Time of Note DATE: 03/30/17 TIME: 11:35 Assessment/Plan VTE Prophylaxis VTE Prophylaxis Intervention: heparin Lines/Catheters IV [facility]ter [facility] (from [facility]): Peripheral IV Urinary Cath still in place: No Assessment/Plan Chief Complaint/Hosp Course Assessment/Plan: 66-year-old male with a history of hypertension, BPH, non- Hodgkin's lymphoma status post chemo therapy 2 years ago in his home country [facility] now in remission, presents with fever and diarrhea, signs of gastroenteritis. 1. Sepsis: as evidenced by fever and leukocytosis. No clear identifiable source of infection but possibly secondary to gastroenteritis versus URI, also cannot rule out lymphoma recurrence? chest x-ray and urinalysis are negative. Presenting symptom could also possibly be related to the sanchez spray 5 days prior to admission given the timing of symptom onset. Patient still with fevers in the last [address] abdomen pelvis negative for any acute pathology. -Follow-up full infectious workup, including urine culture, blood culture ( preliminary negative), stool culture as well as C. difficile -Continue broad-spectrum antibiotics, follow-up infectious disease recommendations -Still awaiting physical therapy eval 2. Acute encephalopathy: Resolved Head CT is negative. - Will monitor for now. Not suspecting stroke 3. Presumed acute kidney injury: Likely prerenal etiology as a result of vomiting and diarrhea. Creatinine slowly improving. -Continue IV fluid. Will follow up with a.m. lab. -Consider nephrology consult if worsens. Renal ultrasound is needed. 4. Hyponatremia: Secondary to GI loss from vomiting and diarrhea, resolved -Continue normal saline IV fluid 5. History of non-Hodgkin's lymphoma: Status post chemotherapy 2 years ago in his home country [facility]. Currently in remission. Still with positive fevers. Again CT abdomen pelvis negative for any acute findings. -Appreciate hematology oncology consult, further recommendations -We will also consider CT neck given the fact that patient has history of non -Hodgkin's lymphoma, still having fevers and neck pain. 6. BPH: Continue Flomax Problems: Subjective 24 Hr Interval Summary Free Text/Dictation Patient had CT scan abdomen pelvis yesterday. Still with some mild neck stiffness. Seen by hematology oncology team. Exam/Review of Systems Vital Signs Vitals Vital Signs Date Time Temp Pulse Resp B/P Pulse Ox O2 Delivery O2 Flow Rate FiO2 03/30/17 07:34 98.9 61 20 160/86 99 03/26/17 21:45 Room Air 03/26/17 20:00 2 Intake and Output 03/29/17 03/29/17 03/30/17 14:59 22:59 06:59 Intake Total 100 ml 1910 ml 1250 ml Output Total 550 ml 900 ml 800 ml Balance -450 ml 1010 ml 450 ml Exam Constitutional: Lying in bed, slightly lethargic, but alert Head: atraumatic, normocephalic Eyes: EOMI, PERRL Respiratory: clear to auscultation, normal air movement Cardiovascular: nl pulses, regular rate and rhythm Gastrointestinal: non-tender, soft Extremities: normal pulses Neurological: nl mental status, nl speech, nl strength Results Result Diagram: 03/30/1710 03/30/17 0510 Results 24 hrs Laboratory Tests Test 03/29/17 14:17 03/30/17 05:10 Vancomycin Level Trough < 5.0 L White Blood Count 8.3 Red Blood Count 3.86 L Hemoglobin 12.2 L Hematocrit 34.1 L Mean Corpuscular Volume 88.3 Mean Corpuscular Hemoglobin 31.6 Mean Corpuscular Hemoglobin Concent 35.8 Red Cell Distribution Width 13.2 Platelet Count 121 L Mean Platelet Volume 12.2 H Neutrophils % 80.7 H Lymphocytes % 7.1 L Monocytes % 11.1 H Eosinophils % 0.1 Basophils % 0.4 Nucleated Red Blood Cells % 0.0 Neutrophils # 6.7 Lymphocytes # 0.6 L Monocytes # 0.9 Eosinophils # 0.0 Basophils # 0.0 Nucleated Red Blood Cells # 0.0 Sodium Level 134 L Potassium Level 3.9 Chloride Level 99 Carbon Dioxide Level 23 Anion Gap 16 Blood Urea Nitrogen 12 Creatinine 1.35 H Glucose Level 103 Calcium Level 8.6 Phosphorus Level 3.4 Magnesium Level 1.7 Medications Medications Current Medications Ondansetron HCl 4 mg 4 mg Q6H PRN IV NAUSEA AND/OR VOMITING; Start 03/27/17 at 00:00 Piperacillin Sod/ Tazobactam Sod (Zosyn 3.375gm/ 100 ml (Pmx)) 100 ml @ 200 mls /hr Q8 IVPB Last administered on 03/30/17t 05:45; Admin Dose 200 MLS/HR; Start 03/27/17 at 06:00 Acetaminophen (Tylenol Tab) 650 mg Q6H PRN PO PAIN AND OR ELEVATED TEMP Last administered on 03/30/17 02:01; Admin Dose 650 MG; Start 03/27/17 at 09:30 Famotidine (Pepcid) 10 mg DAILY PO Last administered on 03/30/17 09:00; Admin Dose 10 MG; Start 03/28/17 at 09:00 Heparin Sodium (Porcine) (Heparin (5000 Units/0.5 ml)) 5,000 unit BID SC Last administered on 03/30/17 09:05; Admin Dose 5,000 UNIT; Start 03/27/17 at 21:00 Ibuprofen 800 mg 800 mg Q6H PRN PO PAIN AND OR ELEVATED TEMP Last administered on 03/30/17 09:07; Admin Dose 800 MG; Start 03/27/17 at 15:30 Sodium Chloride (NS) 1,000 ml @ 75 mls/hr [id number] IV Last administered on 01:28; Admin Dose 75 MLS/HR; Start 03/28/17 at 11:30 Docusate Sodium (Colace) 100 mg BID PO Last administered on 03/30/17 08:59; Admin Dose 100 MG; Start 03/28/17 at 21:00 Senna 1 tab 1 tab BID PO Last administered on 03/30/17 09:00; Admin Dose 1 TAB ; Start 03/28/17 at 21:00 Vancomycin HCl (Vancocin) 250 ml @ 125 mls/hr Q12H IVPB Last administered on 03:49; Admin Dose 125 MLS/HR; Start 03/29/17 at 16:00 LIUDMILA DEJESUS Mar 30, 2017 11:42
[2017-03-30] MEDS ORDERED: POLYETHYLENE GLYCOL 17 GM PACKET PO SCH (12:00)
[2017-03-30 14:18] VITALS: BP 132/88; RESP 20
[2017-03-30] MEDS ORDERED: SOD CHLORIDE 0.9% 100 ML ONE (17:17)
[2017-03-30] MEDS ORDERED: IODIXANOL LOCM 100 ML BTL ONE (17:17)
[2017-03-30] MEDS: HYDROCODONE/APAP (5/325) TAB PO PRN (18:19)
[2017-03-30 19:45] VITALS: BP 114/68; RESP 20
--- NOTE | 2017-03-30 20:13 | CONS ---
Date/Time of Note Date/Time of Note DATE: 03/30/17 TIME: 19:56 Assessment/Plan Assessment/Plan Chief Complaint/Hosp Course ID PROGRESS NOTE CURRENT ABX: Zosyn #4 + Vanco IV s/p Cefepime #2 24 HOUR INTERVAL SUMMARY * (+)Diarrhea on Zosyn -- No fever today -- TMax yesterday 100.6, WBC 8.3 normalized, repeat urine 03/28 (-) * 03/26/17 CXR: No evidence for active cardiopulmonary disease. * 03/29 CT ABD/Pelvis: No evidence of mass, lymphadenopathy or acute inflammatory pathology of the chest, abdomen or pelvis. Shoddy lymph nodes are seen within the retroperitoneum and pelvis. Mild dilatation of the ascending aorta. Cholelithiasis. Marked left renal atrophy. Enlarged prostate. Moderate large bilateral hydroceles. * MICRO 03/26/17: BCx(-); Urine (+) Mixed pathogens, possible contaminant Specimen: [id number] Status: Complete Lisa: 03/26/17 Rcvd: Source: CATHETER U Sp Descrip: Procedure Result Microbiology URINE CULTURE Final Organism 1 MIXED GRAM POSITIVE ORGANISMS COLONY COUNT 50,000 - 60,000 CFU/ml Exam Constitutional: alert, oriented, well developed Head: atraumatic, normocephalic Eyes: EOMI, PERRL Respiratory: clear to auscultation, normal air movement Cardiovascular: nl pulses, regular rate and rhythm Gastrointestinal: non-tender, soft Extremities: normal pulses Neurological: nl mental status, nl speech, nl strength ID ASSESSMENT 66 yo M PMHx of Non-Hodgkin's Lymphoma in remission (s/p Chemo Rx 2014 in [facility] ) admit with: 1. Sepsis w/fevers 102.4. ->103.0, leukocytosis, slightly elevated lactic acid 1.3 (WNL) due to (+)Gastroenteritis w/(+)nausea + vomiting * Afebrile today, WBC normalized, Urine (-)=> (+)Diarrhea after Day #5 ABX * DDx viral syndrome? * CT ABD/Pelvis: (+) Shoddy lymph nodes are seen within the retroperitoneum and pelvis ?Recurrent Lymphoma? 2. Acute encephalopathy: likely toxic metabolic due to sepsis => Resolved * Head CT is negative. 3. BPH w/ questionable Urinary retention? * CT ABD 03/29: Enlarged prostate. Moderate large bilateral hydroceles. 4. No confirmation of UTI/Prostatitis=> Suspect urostasis bacteruria * Patient at risk for bladder urostasis, UTI, and prostatitis due to (+)BPH * 03/26 UA: WBC 1, no LeukEsterase, (-)bacteria/yeast => 8/ Urine Cx URINE CULTURE Final MIXED GRAM POSITIVE ORGANISMS 50,000 - 60,000 CFU/ml * 03/28 Urine Cx (-) 48 H = final 5. Presumed acute kidney injury: Likely prerenal etiology as a result of vomiting and diarrhea 6. Hyponatremia: Secondary to GI loss from vomiting and diarrhea 7. QUERY: Silent ASP Pneumonitis in setting of acute encephalopathy without full blown PNA? 8. ABX associated diarrhea=> (+)Diarrhea after Day #5 ABX CURRENT ABX: Zosyn #4 + Vanco IV TOTAL ABX DAY #5 s/p Cefepime -> 8/1 ID RECOMMENDATIONS 1. Afebrile today, WBC normalized, Urine (-)=> (+)Diarrhea after Day #5 ABX 2. Pt has improved -- no fever today, WBC normalized. 3. DC Zosyn == urine cx is negative -->stool cx for C.Diff, CXR, procalcitonin, PSA if elevated consider prostatitis 4. Continue Vanco IV for now . Problems: Consultation Date/Type/Reason Admit Date/Time Mar 26, 2017 at 21:15 Initial Consult Date 03/27/17 Type of Consultation: id Referring Provider: LIUDMILA DEJESUS Exam/Review of Systems Vital Signs Vitals Vital Signs Date Time Temp Pulse Resp B/P Pulse Ox O2 Delivery O2 Flow Rate FiO2 03/30/17 19:45 97.8 73 20 114/68 100 03/26/17 21:45 Room Air 03/26/17 20:00 2 Intake and Output 03/29/17 03/29/17 03/30/17 15:00 23:00 07:00 Intake Total 100 ml 1910 ml 1250 ml Output Total 550 ml 900 ml 800 ml Balance -450 ml 1010 ml 450 ml Results Result Diagram: 03/30/17 0510 03/30/17 0510 Results 24 hrs Laboratory Tests Test 03/30/17 05:10 White Blood Count 8.3 Red Blood Count 3.86 L Hemoglobin 12.2 L Hematocrit 34.1 L Mean Corpuscular Volume 88.3 Mean Corpuscular Hemoglobin 31.6 Mean Corpuscular Hemoglobin Concent 35.8 Red Cell Distribution Width 13.2 Platelet Count 121 L Mean Platelet Volume 12.2 H Neutrophils % 80.7 H Lymphocytes % 7.1 L Monocytes % 11.1 H Eosinophils % 0.1 Basophils % 0.4 Nucleated Red Blood Cells % 0.0 Neutrophils # 6.7 Lymphocytes # 0.6 L Monocytes # 0.9 Eosinophils # 0.0 Basophils # 0.0 Nucleated Red Blood Cells # 0.0 Sodium Level 134 L Potassium Level 3.9 Chloride Level 99 Carbon Dioxide Level 23 Anion Gap 16 Blood Urea Nitrogen 12 Creatinine 1.35 H Glucose Level 103 Calcium Level 8.6 Phosphorus Level 3.4 Magnesium Level 1.7 Medications Medications Current Medications Ondansetron HCl 4 mg 4 mg Q6H PRN IV NAUSEA AND/OR VOMITING; Start 03/27/17 at 00:00 Piperacillin Sod/ Tazobactam Sod (Zosyn 3.375gm/ 100 ml (Pmx)) 100 ml @ 200 mls /hr Q8 IVPB Last administered on 03/30/17 14:29; Admin Dose 200 MLS/HR; Start 03/27/17 at 06:00 Acetaminophen (Tylenol Tab) 650 mg Q6H PRN PO PAIN AND OR ELEVATED TEMP Last administered on 03/30/17 02:01; Admin Dose 650 MG; Start 03/27/17 at 09:30 Famotidine (Pepcid) 10 mg DAILY PO Last administered on 03/30/17 09:00; Admin Dose 10 MG; Start 03/28/17 at 09:00 Heparin Sodium (Porcine) (Heparin (5000 Units/0.5 ml)) 5,000 unit BID SC Last administered on 03/30/17 09:05; Admin Dose 5,000 UNIT; Start 03/27/17 at 21:00 Ibuprofen 800 mg 800 mg Q6H PRN PO PAIN AND OR ELEVATED TEMP Last administered on 03/30/17 09:07; Admin Dose 800 MG; Start 03/27/17 at 15:30 Sodium Chloride (NS) 1,000 ml @ 75 mls/hr [id number] Last administered on 01:28; Admin Dose 75 MLS/HR; Start 03/28/17 at 11:30 Docusate Sodium (Colace) 100 mg BID PO Last administered on 03/30/17 08:59; Admin Dose 100 MG; Start 03/28/17 at 21:00 Senna 1 tab 1 tab BID PO Last administered on 03/30/17 09:00; Admin Dose 1 TAB ; Start 03/28/17 at 21:00 Vancomycin HCl (Vancocin) 250 ml @ 125 mls/hr Q12H IVPB Last administered on 16:21; Admin Dose 125 MLS/HR; Start 03/29/17 at 16:00 Polyethylene Glycol (Miralax) 8.5 gm DAILY PO ; Start 03/30/17 at 12:00 Acetaminophen/ Hydrocodone Bitart ([place] (5/325)) 1 tab Q6H PRN PO PAIN LEVEL 6 -10 Last administered on 03/30/17 18:19; Admin Dose 1 TAB; Start 03/30/17 at 12: 00 Miscellaneous Information (*Rx Drug Level Order Reminder*) VANCO TROUGH @ 0, 300 ON... ONCE ONCE XX ; Start 03/31/17 at 03:00; Stop 03/31/17 at 03:01 DANIEL BECKETT NP Mar 30, 2017 20:06
[2017-03-31] MEDS: SOD CHLORIDE 0.9% 1,000 ML IV SCH ×3 (01:06→19:30)
[2017-03-31 02:00] VITALS: BP 159/83; RESP 18
[2017-03-31 03:12] LABS: ABNORMAL IP MESSAGE 1; BASOPHILS % 0.4 % (0.0-2.0); EOSINOPHILS # 0.1 10^3/ul (0.0-0.5); EOSINOPHILS % 0.7 % (0.0-7.0); HEMATOCRIT 37.6 % (42.0-52.0); LYMPHOCYTES # 0.6 10^3/ul (0.8-2.9); LYMPHOCYTES % 7.2 % (15.0-51.0); MEAN CORPUSCULAR HEMOGLOBIN 31.4 pg (29.0-33.0); MEAN CORPUSCULAR HGB CONC 34.6 g/dl (32.0-37.0); MEAN CORPUSCULAR VOLUME 90.8 fl (82.0-101.0); MEAN PLATELET VOLUME 12.1 fl (7.4-10.4); MONOCYTE # 0.8 10^3/ul (0.3-0.9); MONOCYTES % 9.8 % (0.0-11.0); NEUTROPHIL # 6.5 10^3/ul (1.6-7.5); NEUTROPHILS % 81.2 % (39.0-77.0); PLATELET COUNT 137 10^3/UL (140-415); POSITIVE DIFF @See below; RED BLOOD COUNT 4.14 10^6/ul (4.70-6.10); RED CELL DISTRIBUTION WIDTH 13.7 % (11.5-14.5)
[2017-03-31 03:43] LABS: CALCIUM 8.6 mg/dl (8.4-10.2); CREATININE 1.36 mg/dl (0.61-1.24); POTASSIUM 3.8 mmol/L (3.5-5.1)
[2017-03-31] MEDS: VANCOMYCIN 1 GM in NS 250 ML IVPB SCH (04:22)
[2017-03-31] MEDS: HYDROCODONE/APAP (5/325) TAB PO PRN (04:27)
[2017-03-31 07:53] VITALS: BP 143/74; RESP 18
[2017-03-31] MEDS ORDERED: LOPE2CAP PO (09:00)
--- NOTE | 2017-03-31 09:00 | PDOCDIS ---
Discharge Instructions CONDITION Patient Condition: Stable HOME CARE INSTRUCTIONS: Special Diet: Regular Diet ACTIVITY: Activity Restrictions: Slowly Increase Activity FOLLOW UP/APPOINTMENTS Follow-up Plan Please take your medications as prescribed. Please follow-up with her primary care doctor in the clinic in the next 1-2 weeks. If you happen to develop any fever or loose stools, please call 911, go to ER, or call your primary care doctor. LIUDMILA DEJESUS Mar 31, 2017 09:00
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
[2017-03-31] MEDS: FAMOTIDINE 20 MG TAB PO SCH (09:31)
[2017-03-31] MEDS: HEPARIN 5,000 UNIT/0.5 ML VIAL SC SCH (09:34)
--- NOTE | 2017-03-31 12:21 | RADRPT ---
PROCEDURE: CT neck with intravenous contrast CLINICAL INDICATION: +fevers, Hx nonHodgkins lymphoma - r/o infx. COMPARISON: None relevant listed. TECHNIQUE: CT of the neck was performed following 80 ml Visipaque 320 intravenous contrast. Axial images were obtained through the neck with multiplanar reformats. DOSE: The estimated administered radiation dose was CTDI vol = 10 mGy. DLP = 245 mGy-cm. One or mor e of the following dose reduction techniques were used: automated exposure control, adjustment of th e mA and/or kV according to patient size, or use of iterative reconstruction technique. FINDINGS: Soft tissues: Normal. No suspicious enhancement. Aerodigestive tract: Artifact from dental hardware limits evaluation of the oral cavity. No primary lesion identified within the nasopharynx, oropharynx, hypopharynx, larynx, and proximal trachea. Salivary glands: Normal. Thyroid: Normal. Lymph nodes: There are non-specific scattered sub-centimeter lymph nodes in the neck bilaterally. No pathologically enlarged or morphologically suspicious adenopathy. Vessels: Patent. Bones: Mild anterior endplate spurring, facet arthropathy, and uncovertebral joint arthropathy betwe en C3-C4 and C5-C6. Visualized lung apices: Clear. Visualized brain parenchyma: Normal. Additional comment: Mucous retention cyst or polyp within the right maxillary sinus. IMPRESSION: 1. No evidence of infection identified. 2. No cervical adenopathy. RPTAT: PP Physician Rosalba Date Time Electronically viewed and signed by Physician Rosalba on 03/31/2017 12:21 LG/
--- NOTE | 2017-03-31 13:18 | RADRPT ---
PROCEDURE: Right knee x-ray CLINICAL INDICATION: . Knee pain TECHNIQUE: AP, lateral and oblique views of the knee were obtained. COMPARISON: None FINDINGS: There is normal mineralization. No acute fracture or dislocation is seen. There is no joint effusion. There are no significant degenerative changes. There is no significant soft tissue swelling. IMPRESSION: No definite abnormalities are identified. RPTAT:AAJJ Physician José Manuel Date Time Electronically viewed and signed by Harjinder Wise Physician on 03/31/2017 13:17 BENNETT/
--- NOTE | 2017-03-31 13:45 | RADRPT ---
PROCEDURE: XR Chest. CLINICAL INDICATION: Cough, nausea vomiting TECHNIQUE: Single frontal view of the chest was obtained COMPARISON: 03/26/2017 FINDINGS: The heart and mediastinum are within normal limits. The lungs are clear. There is no pleural effusion or pneumothorax. The bones and soft tissue show no acute change. IMPRESSION: No definite abnormalities are identified. RPTAT:AAJJ Physician José Manuel Date Time Electronically viewed and signed by Harjinder Wise Physician on 03/31/2017 13:45 /
[2017-03-31 14:04] VITALS: BP 151/80; RESP 20
--- NOTE | 2017-03-31 15:22 | CONS ---
Date/Time of Note Date/Time of Note DATE: 03/31/17 TIME: 15:00 Assessment/Plan Assessment/Plan Chief Complaint/Hosp Course ID PROGRESS NOTE CURRENT ABX: Zosyn #5 + Vanco IV #2 s/p Cefepime #2 24 HOUR INTERVAL SUMMARY * A/A/O -> no complaints, sitting up in bed, no fevers, WBC normalized 8.0 * Nurse tells me stool for C.Diff was cancelled since "patient is going home" - - when I ask the patient is the plan is for DC, patient tells me they were not aware of this. * Patient c/o Right Knee pain -- Right knee 03/31 X-ray is normal- no joint effusion * CXR 03/31/17: The lungs are clear.There is no pleural effusion or pneumothorax. * PSA 0.7 = normal; hence no evidence of prostatitis Exam Constitutional: alert, oriented, well developed Head: atraumatic, normocephalic Eyes: EOMI, PERRL Respiratory: clear to auscultation, normal air movement Cardiovascular: nl pulses, regular rate and rhythm Gastrointestinal: non-tender, soft Extremities: normal pulses Neurological: nl mental status, nl speech, nl strength ID ASSESSMENT 66 yo M PMHx of Non-Hodgkin's Lymphoma in remission (s/p Chemo Rx 2014 in [facility] ) admit with: 1. Sepsis w/fevers 102.4. ->103.0, leukocytosis, slightly elevated lactic acid 1.3 (WNL) due to (+)Gastroenteritis w/(+)nausea + vomiting * Afebrile today, WBC normalized, Urine (-)=> (+)Diarrhea after Day #5 ABX * DDx viral syndrome? * CT ABD/Pelvis: (+) Shoddy lymph nodes are seen within the retroperitoneum and pelvis ?Recurrent Lymphoma? 2. Acute encephalopathy: likely toxic metabolic due to sepsis => Resolved * Head CT is negative. 3. BPH w/ questionable Urinary retention? * CT ABD 03/29: Enlarged prostate. Moderate large bilateral hydroceles. 4. No confirmation of UTI/Prostatitis=> PSA normal PSA 0.7 * 8/ Urine Cx -> contaminated sample vs urostasis from BPH possible retention * 8 UA: WBC 1, no LeukEsterase, (-)bacteria/yeast => 8/ Urine Cx URINE CULTURE Final MIXED GRAM POSITIVE ORGANISMS 50,000 - 60,000 CFU/ml * 03/28 Urine Cx (-) 48 H = final 5. Presumed acute kidney injury: Likely prerenal etiology as a result of vomiting and diarrhea 6. Hyponatremia: Secondary to GI loss from vomiting and diarrhea 7. QUERY: Silent ASP Pneumonitis in setting of acute encephalopathy without full blown PNA? 8. ABX associated diarrhea=> (+)Diarrhea after Day #5-6 ABX CURRENT ABX: Zosyn #5 + Vanco IV #2 TOTAL ABX DAY #6 s/p Cefepime -> 8 ID RECOMMENDATIONS 1. All micro negative -> probably gastroenteritis => DC ABX and observe his response OFF ABX . Problems: Consultation Date/Type/Reason Admit Date/Time Mar 26, 2017 at 21:15 Initial Consult Date 03/27/17 Type of Consultation: id Referring Provider: LIUDMILA DEJESUS Exam/Review of Systems Vital Signs Vitals Vital Signs Date Time Temp Pulse Resp B/P Pulse Ox O2 Delivery O2 Flow Rate FiO2 03/31/17 14:04 97.7 72 20 151/80 100 03/30/17 20:00 Room Air Intake and Output 03/30/17 03/30/17 03/31/17 15:00 23:00 07:00 Intake Total 1970 ml 815 ml Output Total 2100 ml 1000 ml Balance -130 ml -185 ml Results Result Diagram: 03/31/17 0249 03/31/17 0249 Results 24 hrs Laboratory Tests Test 03/31/17 02:49 White Blood Count 8.0 Red Blood Count 4.14 L Hemoglobin 13.0 L Hematocrit 37.6 L Mean Corpuscular Volume 90.8 Mean Corpuscular Hemoglobin 31.4 Mean Corpuscular Hemoglobin Concent 34.6 Red Cell Distribution Width 13.7 Platelet Count 137 L Mean Platelet Volume 12.1 H Neutrophils % 81.2 H Lymphocytes % 7.2 L Monocytes % 9.8 Eosinophils % 0.7 Basophils % 0.4 Nucleated Red Blood Cells % 0.0 Neutrophils # 6.5 Lymphocytes # 0.6 L Monocytes # 0.8 Eosinophils # 0.1 Basophils # 0.0 Nucleated Red Blood Cells # 0.0 Sodium Level 138 Potassium Level 3.8 Chloride Level 100 Carbon Dioxide Level 25 Anion Gap 17 H Blood Urea Nitrogen 14 Creatinine 1.36 H Glucose Level 108 Calcium Level 8.6 Prostate Specific Antigen 0.7 Vancomycin Level Trough 17.0 Medications Medications Current Medications Ondansetron HCl (Zofran Inj) 4 mg Q6H PRN IV NAUSEA AND/OR VOMITING; Start 03/27 at 00:00 Acetaminophen (Tylenol Tab) 650 mg Q6H PRN PO PAIN AND OR ELEVATED TEMP Last administered on 03/30/17 02:01; Admin Dose 650 MG; Start 03/27/17 at 09:30 Famotidine (Pepcid) 10 mg DAILY PO Last administered on 03/31/17 09:31; Admin Dose 10 MG; Start 03/28/17 at 09:00 Heparin Sodium (Porcine) (Heparin (5000 Units/0.5 ml)) 5,000 unit BID SC Last administered on 03/31/17 09:34; Admin Dose 5,000 UNIT; Start 03/27/17 at 21:00 Ibuprofen 800 mg 800 mg Q6H PRN PO PAIN AND OR ELEVATED TEMP Last administered on 03/30/17 09:07; Admin Dose 800 MG; Start 03/27/17 at 15:30 Sodium Chloride (NS) 1,000 ml @ 75 mls/hr [id number] IV Last administered on 01:06; Admin Dose 75 MLS/HR; Start 03/28/17 at 11:30 Acetaminophen/ Hydrocodone Bitart 1 tab 1 tab Q6H PRN PO PAIN LEVEL 6-10 Last administered on 03/31/17 04:27; Admin Dose 1 TAB; Start 03/30/17 at 12:00 Vancomycin HCl/ Sodium Chloride (Vancocin/NS) 150 ml @ 75 mls/hr Q12H IVPB ; Start 03/31/17 at 20:00 DANIEL BECKETT NP Mar 31, 2017 15:10
[2017-03-31 19:31] VITALS: BP 143/81; RESP 18
[2017-03-31] MEDS ORDERED: VANCOMYCIN 750 MG in SOD CHLORIDE 0.9% 150 ML IVPB SCH (20:00)
== END 2017-03-31 21:05 | disposition home or self-care (01) | DRG 871 ==
LOC: E/R 16:42 → MS2 21:15
PROVIDERS: ADMIT Internal Medicine; ATTEND Internal Medicine
DX: A41.9 Sepsis, unspecified organism (principal); G92 Toxic encephalopathy; N17.9 Acute kidney failure, unspecified; E87.1 Hypo-osmolality and hyponatremia; K52.9 Noninfective gastroenteritis and colitis, unspecified; J06.9 Acute upper respiratory infection, unspecified; Z85.72 Personal history of non-Hodgkin lymphomas; N40.0 Benign prostatic hyperplasia without lower urinary tract symptoms; Z77.028 Contact with and (suspected) exposure to other hazardous aromatic compounds
CPT/HCPCS: 36415; 70450; 70490; 71010; 71260; 73560; 74177; 80048; 80053; 80061; 80202; 81001; 83036; 83605; 83735; 84100; 84145; 84153; 84154; 84484; 85025; 85610; 85730; 86674; 87040; 87086; 87177; 87338; 92610; 93005; 96365; 96375; 97161; J0692; J1644; J2543; J3370; J3475; J7030; J7042; Q9967